=== PATIENT | male | born 1960 | race Caucasian/White ===

== ENCOUNTER 2019-04-01 04:13 | Emergency (ER) | payer BC, OTHER ==
[2019-04-01] MEDS: KETOROLAC 30 MG INJ IM (06:56)
[2019-04-01] MEDS: DEXAMETHASONE 10 MG/ML 1 ML INJ IM (06:56)
== END 2019-04-01 07:43 | disposition home or self-care (01) ==
LOC: FTE 04:13
DX: M25.512 Pain in left shoulder (principal); E11.9 Type 2 diabetes mellitus without complications; I10 Essential (primary) hypertension
CPT/HCPCS: 93005; 96372; 99284-25